=== PATIENT | male | born 1985 | race Caucasian/White ===

== ENCOUNTER 2024-11-07 13:48 | Emergency (ER) | payer OTHER, SELFPAY ==
--- OUTSIDE RECORDS SUMMARY | 2024-11-07 13:52 | XMS REPORT | Continuity of Care Document ---
Author Name Unknown Address [address] [facility] [place] [address] [facility] Address [address] [facility] [place] [address] Care Team Providers Care Instrument Person Name Role Phone ERIN ANGUIANO Primary Care Physician Unavaila ROSALINDA Merrill Attending Clinician Unavailable HARITHA Attending Clinician Unavailable EMMETT PANDYA Attending Clinician Unavailable Emmett Pandya MD Attending Clinician OLESYA CARREON Attending Clinician UnavailOlesya Bhakta Attending Clinician Vik Attending Clinician Unavailable ROSALINDA GREGORY Admitting Clinician Unavailable HARITHA Admitting Clinician Unavailable OLESYA CARREON Admitting Clinician Unavaila lynne Chery Admitting Clinician Unavailable Payers Payer Name Policy Type Policy Number Effective Date Expirati on Date Source [place] [employer] [id number] 2019 00:00:00 [employer] (EPO) [id number] 2018 00:00:00 [employer] [id number] 2018 00:00:00 Problems Condition Name Condition Details Condition Category Status Onset Date Resolution Date Last Treatment Date Treating Clinician Comments Source Liver enzymes outside reference range Liver Enzymes outside Reference Range Problem Active 02-20 00:00: 00 [place] López [facility] Abdominal pain Abdominal pain Disease Active 08-23 00:00: 00 [facility] Allergies, Adverse Reactions, Alerts Allergy Name Allergy Type Status Severity Reaction(s) Onset Date Inactive Date Treating Clinician Comments Source PEANUT DRUG INGREDI Active Anaphylaxis 08-22 00:00: 00 [facility] Peanut Propensi ty to adverse reaction s Active Anaphylaxis 08-22 00:00: 00 [facility] Social History Social Habit Start Date Stop Date Quantity Comments [facility] 2023-07-15 00:00:00 2023-07-15 00:00:00 Current drinker of alcohol (finding) [facility] History of Social function 2023-07-15 00:00:00 2023-07-15 00:00:00 [facility] Alcoholic beverage intake 2023-07-15 00:00:00 2023-07-15 00:00:00 Current drinker of alcohol (finding) [facility] Tobacco use and exposure 2017-08-23 00:00:00 2017-08-23 00:00:00 Smokeless tobacco non-user [facility] Alcohol Comment 2017-08-23 00:00:00 2017-08-23 00:00:00 occasional [facility] Sex assigned at 1985 00:00:00 1985 00:00:00 [facility] Smoking Status Start Date Stop Date Source Never Smoker [facility] Medications Ordered Medication Name Filled Medication Name Start Date Stop Date Current Medication? Ordering Clinician Indication Dosage Frequency Signature (SIG) Comments Components Source iopamidol (ISOVUE 370-500 mL) injection 85 mL 01-08 22:30: 00 01-08 22:30 :00 No [id number] 85mL 85 mL, Intravenou s, ONCE, 1 dose, On Mon01/09/24 at 1730, Routine [facility] ketorolac (TORADOL) injection 15 mg 01-08 22:28: 00 01-08 22:58 :00 No 15mg 15 mg, Slow IV Push, ONCE, 1 dose, On Mon01/09/24 at 1730, Routine [facility] sodium chloride (NS) injection 5 mL 01-08 20:06: 14 Yes 5mL 5 mL, Intravenou s, PRN, Starting on Mon01/09/24 at 1506, Until Discontinu ed, Routine, IV line flushing [facility] HYDROcodone -acetaminop hen (NORCO 5) 5-325 mg tablet 1 tablet 2022-08 06:30: 00 07-16 05:40 :00 No 1{tbl} 1 tablet, Oral, ONCE, 1 dose, On 07/16/23 at 0030, Routine [facility] HYDROcodone -acetaminop hen (NORCO 5) 5-325 mg tablet 1 tablet 2022-08 00:00: 00 07-15 23:15 :00 No 1{tbl} 1 tablet, Oral, ONCE, 1 dose, On 07/15/23 at 1800, Routine [facility] ibuprofen 600 mg tablet 2022-08 00:00: 00 07-23 05:59 :00 No [id number] 600mg Take 1 tablet by mouth every 6 (six) hours as needed for Alternate with [place] for pain scale 4-6 for up to 7 days. [facility] HYDROcodone -acetaminop hen 5-325 mg tablet 2022-08 00:00: 00 07-23 05:59 :00 No [id number] 1{tbl} Take 1 tablet by mouth every 6 (six) hours as needed for Pain (scale 7-10) for up to 7 days. Indication s: acute pain [facility] traMADOL 50 mg tablet 08-23 00:00: 00 Yes 50mg Take 1 tablet by mouth every 6 (six) hours. [facility] Polyethylen e Glycol 3350 17 gram powder 08-23 00:00: 00 Yes 17g Take 1 Packet by mouth every 24 (twenty-fo ur) hours as needed for Constipati on. [facility] acetaminoph en-codeine (TYLENOL #3) 300-30 mg tablet 01-14 00:00: 00 Yes 1{tbl} Take 1 tablet by mouth every 6 (six) hours as needed for Pain (scale 7-10). [facility] proMETHazin e (PHENERGAN) 25 mg tablet 01-14 00:00: 00 Yes 25mg Take 1 tablet by mouth every 6 (six) hours as needed for Nausea and Vomiting (N/V). [facility] Vital Signs Vital Name Observation Time Observation Value Comments S ource BP Systolic 2024-10-03 00:00:00 132 mm[Hg] [facility] Height 2024-10-03 00:00:00 68 [in_i] [facility] Body Weight 2024-10-03 00:00:00 3248 [oz_av] [facility] BP Diastolic 2024-10-03 00:00:00 70 mm[Hg] [facility] BMI (Body Mass Index) 2024-10-03 00:00:00 30.9 kg/m2 [facility] Body Weight 2024-08-22 00:00:00 3252 [oz_av] [facility] BMI (Body Mass Index) 2024-08-22 00:00:00 30.9 kg/m2 [facility] BP Systolic 2024-08-22 00:00:00 133 mm[Hg] [facility] Height 2024-08-22 00:00:00 68 [in_i] [facility] BP Diastolic 2024-08-22 00:00:00 98 mm[Hg] [facility] Systolic blood pressure 2024-01-09 22:58:00 119 mm[Hg] [facility] Diastolic blood pressure 2024-01-09 22:58:00 85 mm[Hg] [facility] Heart rate 2024-01-09 22:58:00 77 /min [facility] Respiratory rate 2024-01-09 22:58:00 16 /min [facility] Oxygen saturation in Arterial blood by Pulse oximetry 2024-01-09 22:58:00 98 /min [facility] Body temperature 2024-01-09 20:06:00 36.89 Karen [facility] Body height 2024-01-09 20:06:00 172.7 cm [facility] Body weight 2024-01-09 20:06:00 88.451 kg [facility] BMI 2024-01-09 20:06:00 29.65 kg/m2 [facility] BP Diastolic 2023-10-19 00:00:00 72 mm[Hg] [facility] BP Systolic 2023-10-19 00:00:00 118 mm[Hg] [facility] BMI (Body Mass Index) 2023-10-19 00:00:00 30.1 kg/m2 [facility] Body Weight 2023-10-19 00:00:00 3168 [oz_av] [facility] Height 2023-10-19 00:00:00 68 [in_i] [facility] Systolic blood pressure 2023-07-16 05:00:00 101 mm[Hg] [facility] Diastolic blood pressure 2023-07-16 05:00:00 71 mm[Hg] [facility] Heart rate 2023-07-16 05:00:00 69 /min [facility] Body temperature 2023-07-16 05:00:00 37 Karen [facility] Respiratory rate 2023-07-16 05:00:00 18 /min [facility] Oxygen saturation in Arterial blood by Pulse oximetry 2023-07-16 05:00:00 100 /min [facility] Body height 2023-07-16 03:15:21 172.7 cm [facility] Body weight 2023-07-16 03:15:21 90.719 kg [facility] BMI 2023-07-16 03:15:21 30.41 kg/m2 [facility] Systolic blood pressure 2023-07-16 02:06:44 121 mm[Hg] [facility] Diastolic blood pressure 2023-07-16 02:06:44 91 mm[Hg] [facility] Respiratory rate 2023-07-16 02:06:44 16 /min [facility] Heart rate 2023-07-16 02:00:00 71 /min [facility] Body temperature 2023-07-16 02:00:00 36.78 Karen [facility] Oxygen saturation in Arterial blood by Pulse oximetry 2023-07-16 02:00:00 96 /min [facility] Body height 2023-07-16 01:05:00 172.7 cm [facility] Body weight 2023-07-16 01:05:00 90.719 kg [facility] BMI 2023-07-16 01:05:00 30.41 kg/m2 [facility] BP Diastolic 2023-04-28 00:00:00 90 mm[Hg] [facility] Body Weight 2023-04-28 00:00:00 3158.4 [oz_av] [facility] Height 2023-04-28 00:00:00 68 [in_i] [facility] BP Systolic 2023-04-28 00:00:00 124 mm[Hg] [facility] BMI (Body Mass Index) 2023-04-28 00:00:00 30 kg/m2 [facility] BP Diastolic 2023-02-20 00:00:00 84 mm[Hg] [facility] Height 2023-02-20 00:00:00 68 [in_i] [facility] BMI (Body Mass Index) 2023-02-20 00:00:00 30.3 kg/m2 [facility] BP Systolic 2023-02-20 00:00:00 138 mm[Hg] [facility] Body Weight 2023-02-20 00:00:00 3184 [oz_av] [facility] Procedures Procedure Date / Time Performed Performing Clinician Source CT, abdomen + pelvis, w/ contrast 2024-10-03 00:00:00 [facility] electrocardiogram, routine ECG, 12 leads min 2024-08-22 00:00:00 [facility] CT ABDOMEN PELVIS W CONTRAST 2024-01-09 21:32:30 Rosalinda Gregory [facility] LIPASE 2024-01-09 20:49:[address] [facility] COMP. METABOLIC PANEL (36987) 2024-01-09 20:49:00 Rosalinda Gregory [facility] CBC WITH DIFF 2024-01-09 20:49:00 Rosalinda Gregory [facility] URINALYSIS 2024-01-09 20:49:00 [facility] LIPASE 2023-07-16 03:24:00 Greg Mathew [facility] COMP. METABOLIC PANEL ([id number]) 2023-07-16 03:24:00 Greg Mathew [facility] CBC WITHOUT DIFF 2023-07-16 03:24:00 [facility] PROTHROMBIN TIME / INR 2023-07-16 03:24:00 Pretty Mathew [facility] ACTIVATED PARTIAL THRMPLAS XIOMARA 2023-07-16 03:24:00 [facility] HB ABO GROUPING 2023-07-16 03:24:00 [facility] CT MAXILLOFACIAL/MANDIBLE WO CONTRAST 2023-07-15 23:43:47 Olesya Carreon [facility] ASSIGNMENT OF BENEFITS 2023-07-15 23:34:38 Docto r Unassigned, [place] [facility] NOTICE OF PRIVACY PRACTICES 2023-07-15 22:16:54 Doctor Unassigned, [place] [facility] CONSENT/REFUSAL FOR DIAGNOSIS AND TREATMENT 2023-07-15 22:16:04 Doctor Unassigned, [place] [facility] Extraction of [place] [facility] Circumcision [facility] Encounters Start Date/Time End Date/Time Encounter Type Admission Type Attending Clinicians Care Facility Care Department Encounter ID Source 2024-10-03 00:00:00 2024-10-03 00:00:00 DONAL Mckeon: [address], [place] [address] , Ph. [phone] [facility] - [facility] - [facility], DONAL MCKEON [id number] [facility] 2024-08-22 00:00:00 2024-08-22 00:00:00 Brittnee James APRN-SKYLERB C: [address] [place] [address] , Ph. [facility] [id number] [address] [facility] 2024-01-09 15:08:00 2024-01-09 18:27:00 Emergency X ROSALINDA GREGORY [facility] ERT [id number] [facility] 2024-01-09 15:08:00 2024-01-09 18:27:00 Emergency Rosalinda Gregory [facility] [id number] [facility] 2023-11-17 00:00:00 2023-11-17 00:00:00 Outpatient ERICKSON_R [id number] [facility] 2023-10-19 00:00:00 2023-10-19 00:00:00 Outpatient ERICKSON_R [id number] [facility] 2023-10-19 00:00:00 2023-10-19 00:00:00 SKYLER MckeonC: [address] [place] [address] , Ph. [phone] [facility], [address] MATHEW [id number] [facility] 2023-09-30 00:00:00 2023-09-30 00:00:00 Outpatient ERICKSON_R [id number] [facility] 2023-08-26 00:00:00 2023-08-26 00:00:00 Outpatient ERICKSON_R [id number] [facility] 2023-07-15 21:11:00 2023-07-15 23:46:00 Emergency EMMETT HORNE [facility] STR [id number] [facility] 2023-07-15 21:11:00 2023-07-15 23:46:00 Emergency Emmett Pandya [facility] [id number] [facility] 2023-07-15 16:26:00 2023-07-15 20:10:00 Emergency X OLESYA CARREON [facility] ERT [id number] [facility] 2023-07-15 16:26:00 2023-07-15 20:10:00 Emergency Olesya Carreon F [facility] [id number] [facility] 2023-04-28 00:00:00 2023-04-28 00:00:00 Jesusita Velásquez APRN, MSN, [facility]-: [address] [place] [address], [address] [address] , Ph. [facility] [id number] [facility] 2023-02-28 00:00:00 2023-02-28 00:00:00 Outpatient ERICKSON_R [facility] [id number] [facility] 2023-02-20 00:00:00 2023-02-20 00:00:00 Outpatient ERICKSON_R [id number] [facility] 2023-02-20 00:00:00 2023-02-20 00:00:00 DESTINY Chen-C: [address], [place] [address] , Ph. [facility] - [facility] - [facility], DR[address] MATHEW [id number] [facility] 2023-01-30 00:00:00 2023-01-30 00:00:00 Outpatient QUINCY_R [facility] [id number] [facility] 2020-01-03 03:13:00 2020-01-03 03:13:00 Outpatient Shield MMG MMG [id number] [facility] Results Test Description Test Time Test Comments Results Result Comments Source CT ABDOMEN PELVIS W CONTRAST 22:40:24 ORDERING PHYSICIAN:ROSALINDA PINEDO CLINICAL INFORMATION: ? RLQ abdominal pain (Age >= 14y) COMPARISON: None Technique: ? CT of the abdomen and pelvis was performed after theadministration of IV contrast. No p.o. contrast was used. Multiplanarreformats were also obtained. This study was performed according to ALARAprinciple for radiation dose reduction. Findings: There is no evidence of obstructive uropathy. No suspicious focal renalparenchymal abnormalities are seen. Multiple small cysts are seenthroughout both kidneys. Liver, gallbladder, spleen, adrenal glands, andpancreas show no evidence of gross abnormality. There is no bowelobstruction. Appendix is normal. No free intraperitoneal air or fluid arepresent. No pathologically enlarged lymph nodes are seen in the abdomen orpelvis. The lung bases are clear. There are no suspicious focal osseouslesions. [facility] BranchType and Screen - The Type and Screen expires at midnight on the 3rd day after it was drawn. A current Type and Screen is required when RBCs are requested. For all other blood products, a Type and Scr een performed during the current hospitalizati...2023-07-16 03:59:00* Test Item Value Reference Range Interpretation Comme nts ABO & RH (test code = 20) B POSITIVE IAT (test code = 1185) Negative [facility] 03:49:21* Test Item Value Reference Range Interpretation Comme nts LIPASE (test code = 2801324218) 147 U/L 0-220 Lab Interpretation (test cod e = 14569-7) Normal [facility]23-[facility]-26 03:47:21* Test Item Value Reference Range Interpretation Comme [facility] APTT Patient (test code = 3173-2) 32 See_Comment [Automated iZocaa ge] The system which generated this result transmitted reference range: 26 - 36 Seconds. The reference range was not used to interpret this result as normal/abnormal. Lab Interpretation (test code = 30775-8) Normal [facility] Time / [id number] 03:47:21* Test Item Value Reference Range Interpretation Comme [facility] PROTIME PATIENT (test code = 5964-2) 10.2 See_Comment [Automated messa ge] The system which generated this result transmitted reference range: 10.1 - 12.6 Seconds. The reference range was not used to interpret this result as normal/abnormal. INR (test code = 6301-6) 0.9 Normal INR <1.1; Warfarin Therapeutic range 2.0 to 3.0 or 2.5 to 3.5, depending upon the indications. Lab Interpretation (test code = 37377-6) Normal [facility] Without [id number] 03:35:59* Test Item Value Reference Range Interpretation Comme [facility] WBC (test code = 6690-2) 8.35 See_Comment [Automated message] The system which generated this result transmitted reference range: 4.20 - 10.70 10*3/?L. The reference range was not used to interpret this result as normal/abnormal. RBC (test code = 789-8) 5.43 See_Comment [Automated message] The system which generated this result transmitted reference range: 4.26 - 5.52 10*6/?L. The reference range was not used to interpret this result as normal/abnormal. HGB (test code = 718-7) 15.9 g/dL 12.2-16.4 HCT (test code = 4544-3) 46.7 % 38.4-49.3 MCH (test code = 785-6) 29.3 pg 26.1-32.7 MCV (test code = 787-2) 86.0 fL 81.7-95.6 MCHC (test code = 786-4) 34.0 g/dL 31.2-35.0 PLT (test code = 777-3) 328 See_Comment [Automated message] The system which generated this result transmitted reference range: 150 - 328 10*3/?L. The reference range was not used to interpret this result as normal/abnormal. MPV (test code = 98620-5) 9.4 fL 9.8-13.0 L RDW-CV (test code = 788-0) 13.0 % 12.1-15.4 RDW-SD (test code = 41350-5) 40.1 fL 38.5-51.6 NRBC x10^3 (test code = 9690146695) See_Comment [Automated messa ge] The system which generated this result transmitted reference range: 10*3/?L. The reference range was not used to interpret this result as normal/abnormal. NRBC/100 WBC (test code = 2366900630) 0.0 See_Comment [Automated messa ge] The system which generated this result transmitted reference range: 0.0 - 10.0 /100 WBCs. The reference range was not used to interpret this result as normal/abnormal. IPF % (test code = 9039360005) Lab Interpretation (test code = 90929-7) Abnormal [facility] Notes Date/Time Note Provider Source 2024-01-09 18:21:19 Pt given printed and verbal discharge instructions regarding simple kidney cysts, pain control, encouraged hydration, NO Prescriptions provided Discussed ibuprofen and to take with food to avoid GI distress. Pt verbalized understanding of instructions, pt awake alert oriented, resp reg unlabored, skin w/d, color appropriate for race, moves all ext well,pt encouraged to follow up with pcp and or Nephrology Advised to seek medical attention for new/prolonged/worsening of symptoms, No adverse reaction to meds given in ER noted upon discharge PIV d'cd, dressing to site, catheter in tact. Awake, alert oriented, resp reg unlabored, skin w/d, pt leaving amb with steady gait, in no apparent distress, [facility] 2024-01-09 15:04:50 Patient reports that he has had dull RLQ abdominal pain for the past 3 weeks and that the past few days the pain has gotten more intense and last night he began to vomit. Denies diarrhea. Reports no medical history or surgical history. Annamaria Watkins RN [facility]
--- NOTE | 2024-11-07 15:53 | RAD REPORT ---
EXAMINATION: ULTRASOUND DUPLEX OF SCROTUM AND TESTICLES CLINICAL INDICATION: Testicular pain TECHNIQUE: Duplex scan of the scrotal contents was performed including real-time color and spectral D oppler ultrasonography with arterial inflow and venous outflow. COMPARISON: No prior exam. FINDINGS: Right testicle measures 5 x 2.5 x 3 cm with a normal echotexture. Normal blood flow. Left testicle measures 4.9 x 2.7 x 2. 8 with a normal echotexture. Normal blood flow. 3 mm testicular appendix with normal blood flow Right epididymis normal in size and echotexture. Normal blood flow. 2 mm spermatocele Left epididymis normal in size and echotexture. Normal blood flow Small left hydrocele IMPRESSION: Small left hydrocele
[2024-11-07 15:55] LABS: Specific Gravity 1.014 (1.005-1.030); Urine Bilirubin NEGATIVE (Negative); Urine Blood Negative (Negative); Urine Clarity Clear (Clear); Urine Color Light-Yellow (Yellow); Urine Glucose NEGATIVE (Negative); Urine Ketones NEGATIVE (Negative); Urine Microscopic Reflex YN NO UMIC; Urine Nitrite NEGATIVE (Negative); Urine Protein NEGATIVE (Negative); Urine Urobilinogen Normal (Normal)
[2024-11-07 16:02] LABS: Absolute Eosinophils 0.3 K/uL (0-0.5); Absolute Lymphocytes (CBC) 1.3 K/uL (0.7-4.9); Absolute Monocytes 0.6 K/uL (0.1-1.3); Basophils % 0.5 % (0-1.3); Eosinophils % 5.2 % (0-4.4); Hematocrit 45.9 % (39.6-49.0); Lymphocytes % 21.4 % (15.3-44.8); MCH 29.5 pg (27.0-35.0); MCHC 34.9 g/dL (32.0-36.0); MCV 84.4 fL (80-100); MPV 8.2 fL (7.6-11.3); Monocytes % 9.3 % (3.3-12.3); Neutrophils % 63.6 % (41.7-73.7); Platelets 274 thou/uL (152-406); RBC Red Blood Cell Count 5.43 M/uL (4.33-5.43); Red Cell Distribution Width 13.3 % (12.1-15.2)
[2024-11-07 16:06] LABS: Albumin 3.8 g/dL (3.4-5.0); Albumin/Globulin Ratio 0.9 (1.1-1.8); Anion Gap 6.9 mEq/L (5.0-15.0); Bilirubin Total 0.5 mg/dL (0.2-1.0); Globulin 4.3 g/dL (2.3-3.5); Potassium 3.9 mEq/L (3.5-5.1); Protein, Total 8.1 g/dL (6.4-8.2)
[2024-11-07] MEDS ORDERED: KETOROLAC 30 MG/ML INJ ONE (16:14)
[2024-11-07] MEDS ORDERED: NA CHLORIDE 0.9% 1,000 ML ONE (16:14)
--- NOTE | 2024-11-07 17:28 | RAD REPORT ---
EXAMINATION: CT ABDOMEN AND PELVIS WITH CONTRAST CLINICAL INDICATION: Abdominal pain TECHNIQUE: CT abdomen and pelvis was performed, after the administration of 100 cc Isovue-300.. Sagit matthias and coronal reconstructions were obtained. One or more of the following dose reduction techniques were used: Automated exposure control, adjustment of the mA and kV according to patient si ze, and iterative reconstruction. Unless otherwise specified, incidental findings do not require dedicated imaging follow-up. [id number]. Oral contrast was given. COMPARISON: .2017 FINDINGS: Liver, spleen, pancreas, adrenals and kidneys appear unremarkable No evidence of diverticulitis. Small umbilical hernia Mild thickening wall distal esophagus. Normal appendix Small umbilical hernia. Small to moderate left inguinal hernia contains fat : IMPRESSION: Mild apparent thickening wall distal esophagus may be secondary to incomplete distention or inflammat ion
--- NOTE | 2024-11-07 18:19 | EDPHYS ---
Physician Documentation [facility] Name: Mychal Valdivia Age: 39 yrs Sex: Male : 1985 Arrival Date: 11/07/2024 Time: 13:48 Bed 12 Private MD: ED Physician Alphonso Gutierrez HPI: 11/07 14:27 This 39 yrs old Male presents to ER via Ambulatory with complaints of Abdominal Pain. cp 14:27 The patient presents with abdominal pain right lower quadrant. Onset: The cp symptoms/episode began/occurred 1 month(s) ago. The symptoms radiate to right testicle. 14:27 Associated signs and symptoms: Pertinent negatives: nausea and vomiting, constipation, cp diarrhea, dysuria, fever, penile discharge. 14:27 The symptoms are described as waxing/waning, pain returned and persistent since cp yesterday. Historical: - Allergies: 14:22 No Known Allergies; iw - Home Meds: 14:21 None [Active]; iw - PMHx: 14:21 None; iw - PSHx: 14:21 None; iw - Immunization history:: Adult Immunizations not up to date. - Infectious Disease History:: Denies. - Social history:: Smoking status: Patient denies any tobacco usage or history of. ROS: 14:30 Abdomen/GI: Positive for abdominal pain, of the right lower quadrant, Negative for cp vomiting, diarrhea, constipation, anorexia, 14:30 Eyes: Negative for injury, pain, redness, and discharge, cp 14:30 Constitutional: Negative for body aches, chills, fever, poor PO intake, 14:30 Respiratory: Negative for cough, shortness of breath, wheezing, 14:30 Back: Negative for radiated pain, 14:30 : Positive for of the right testicular pain, Negative for urinary symptoms, hematuria, penile discharge, 14:30 Neuro: Negative for altered mental status, dizziness, headache, weakness, 14:30 All other systems are negative, Exam: 14:35 Constitutional: The patient appears in no acute distress, alert, awake, non-toxic, well cp developed, well nourished, 14:35 Head/Face: Normocephalic, atraumatic. cp 14:35 Eyes: Periorbital structures: appear normal, Conjunctiva: normal, no exudate, no injection, Sclera: no appreciated abnormality, Lids and lashes: appear normal, bilaterally, 14:35 ENT: External ear(s): are unremarkable, Nose: is normal, Mouth: Lips: moist, Oral mucosa: moist, Posterior pharynx: Airway: no evidence of obstruction, patent, 14:35 Chest/axilla: Inspection: normal, 14:35 Cardiovascular: Rate: normal, 14:35 Respiratory: the patient does not display signs of respiratory distress, Respirations: normal, no use of accessory muscles, no retractions, labored breathing, is not present, 14:35 Abdomen/GI: Inspection: abdomen appears normal, Bowel sounds: active, all quadrants, Palpation: soft, in all quadrants, mild abdominal tenderness, in the right lower quadrant, rebound tenderness, is not appreciated, involuntary guarding, is not appreciated, 14:35 Back: pain, is absent, ROM is normal, CVA tenderness, is absent, Vital Signs: 14:19 BP 134 / 103; Pulse 86; Resp 18; Temp 98.7; Pulse Ox 99% on R/A; Weight 90.72 kg; iw Height 5 ft. 8 in. ; Pain 8/10; 14:19 Body Mass Index 30.41 (90.72 kg, 172.72 cm) iw 14:19 Pain Scale: Adult iw MDM: 14:18 Medical Screening Exam initiated cp 15:00 Differential diagnosis: Pyelonephritis, Testicular Torsion, Ureterolithiasis, urinary cp tract infection, hernia. 18:19 Data reviewed: vital signs, nurses notes, lab test result(s), radiologic studies, CT cp scan, plain films, and as a result, I will discharge patient. 18:19 I considered the following discharge prescriptions or medication management in the emergency department Medications were administered in the Emergency Department. See MAR. Counseling: I had a detailed discussion with the patient and/or guardian regarding the historical points, exam findings, and any diagnostic results supporting the discharge/admit diagnosis, lab results, radiology results, to return to the emergency department if symptoms worsen or persist or if there are any questions or concerns that arise at home. Response to treatment: the patient's symptoms have mildly improved after treatment, and as a result, I will discharge patient. Special discussion: Based on the patient's Hx, exam, and Dx evaluation, there is no indication for emergent surgery or inpatient Tx. It is understood by the patient/guardian that if the Sx's persist or worsen they need to return immediately for re-evaluation. 11/07 14:26 Order name: CBC with Diff; Complete Time: 16:15 cp 11/07 14:26 Order name: CMP; Complete Time: 16:15 cp 11/07 18:17 Interpretation: Normal except: AST 49; ALT 81; ALK 118; GLOB 4.3; A/G 0.9. cp 11/07 14:26 Order name: Lipase; Complete Time: 16:15 cp 11/07 14:26 Order name: Urinalysis w/ reflexes cp 11/07 14:26 Order name: CT Abd/Pelvis - PO and IV Contrast; Complete Time: 18:14 cp 11/07 18:15 Interpretation: Report reviewed. cp 11/07 14:28 Order name: US Scrotum Testicles; Complete Time: 15:59 cp 11/07 16:00 Interpretation: Report reviewed. cp 11/07 14:26 Order name: IV Saline Lock; Complete Time: 15:47 cp 11/07 14:26 Order name: Labs collected and sent; Complete Time: 15:47 cp Administered Medications: 16:22 Drug: NS 0.9% IV 1000 ml IV at 1 bolus Per protocol; to be given as a bolus over 60 aa5 minutes Route: IV; Rate: 1 bolus; Site: left antecubital; 17:22 Follow up: IV Status: Completed infusion; IV Intake: 1000ml aa5 16:22 Drug: Ketorolac IVP 15 mg IVP once Route: IVP; Site: left antecubital; aa5 16:30 Follow up: Response: No adverse reaction aa5 Disposition Summary: 11/07/24 18:19 Discharge Ordered Notes: Location: Home cp Problem: new cp Symptoms: have improved cp Condition: Stable cp Diagnosis - Lower abdominal pain, unspecified cp Followup: cp - With: Private Physician - When: 2 - 3 days - Reason: Recheck today's complaints Discharge Instructions: - Discharge Summary Sheet cp - Abdominal Pain, Adult cp Forms: - Medication Reconciliation Form cp - Antibiotic Education cp - Prescription Opioid Use cp - Patient Portal Instructions cp - Leadership Thank You Letter cp Prescriptions: - dicyclomine 20 mg Oral tablet - take 1 tablet ORAL route 4 times per day; 30 tablet; Refills: 0, Product cp Selection Permitted Signatures: Dispatcher [employer] EDMS Geno Larsen, RN RN iw Noris Mock RN RN aa5 Collin Casillas PA PA cp Corrections: (The following items were deleted from the chart) 14: 14:27 CBC+H.LAB.BRZ ordered. EDMS EDMS 14 14:27 COMPREHENSIVE METABOLIC PANEL+C.LAB.BRZ ordered. EDMS EDMS 14: 14:27 LIPASE+C.LAB.BRZ ordered. EDMS EDMS 14: 14:27 Urinalysis+U.LAB.BRZ ordered. EDMS EDMS
--- NOTE | 2024-11-07 18:19 | ER ---
Nurse's Notes [facility] Name: Mychal Valdivia Age: 39 yrs Sex: Male : 1985 Arrival Date: 11/07/2024 Time: 13:48 Bed 12 Private MD: Diagnosis: Lower abdominal pain, unspecified Presentation: 11/07 14:19 Chief complaint: Patient states: RLQ pain radiating to testicle intermittent for a iw month , worse yesterday. Coronavirus screen: At this time, the client does not indicate any symptoms associated with coronavirus-19. Ebola Screen: No symptoms or risks identified at this time. Initial Sepsis Screen: Does the patient meet any 2 criteria? No. Patient's initial sepsis screen is negative. Does the patient have a suspected source of infection? No. Patient's initial sepsis screen is negative. Risk Assessment: Do you want to hurt yourself or someone else? Patient reports no desire to harm self or others. Onset of symptoms was September 2024. 14:19 Method Of Arrival: Ambulatory iw 14:19 Acuity: MICHAEL 3 iw Historical: - Allergies: 14:22 No Known Allergies; iw - Home Meds: 14:21 None [Active]; iw - PMHx: 14:21 None; iw - PSHx: 14:21 None; iw - Immunization history:: Adult Immunizations not up to date. - Infectious Disease History:: Denies. - Social history:: Smoking status: Patient denies any tobacco usage or history of. Assessment: 16:22 Reassessment: Patient is alert, oriented x 3, equal unlabored respirations, skin aa5 warm/dry/pink. 18:59 Reassessment: Patient is alert, oriented x 3, equal unlabored respirations, skin aa5 warm/dry/pink. Vital Signs: 14:19 BP 134 / 103; Pulse 86; Resp 18; Temp 98.7; Pulse Ox 99% on R/A; Weight 90.72 kg; iw Height 5 ft. 8 in. ; Pain 8/10; 14:19 Body Mass Index 30.41 (90.72 kg, 172.72 cm) iw 14:19 Pain Scale: Adult iw ED Course: 13:53 Patient arrived in ED. al6 14:08 Collin Casillas PA is PHCP. cp 14:08 Alphonso Gutierrez MD is Attending Physician. cp 14:20 Triage completed. iw 14:22 Arm band placed on. iw 15:16 US Scrotum Testicles In Process Unspecified. EDMS 15:44 Initial lab(s) drawn, by me, sent to lab. Inserted saline lock: 20 gauge antecubital aa5 area, using aseptic technique. Blood collected. Flushed with 10 mL NS. 15:46 Patient placed in waiting room, Patient notified of wait time. aa5 16:55 CT Abd/Pelvis - PO and IV Contrast In Process Unspecified. EDMS 18:59 No provider procedures requiring assistance completed. IV discontinued, intact, aa5 bleeding controlled, No redness/swelling at site. Pressure dressing applied. Administered Medications: 16:22 Drug: NS 0.9% IV 1000 ml IV at 1 bolus Per protocol; to be given as a bolus over 60 aa5 minutes Route: IV; Rate: 1 bolus; Site: left antecubital; 17:22 Follow up: IV Status: Completed infusion; IV Intake: 1000ml aa5 16:22 Drug: Ketorolac IVP 15 mg IVP once Route: IVP; Site: left antecubital; aa5 16:30 Follow up: Response: No adverse reaction aa5 Intake: 17:22 IV: 1000ml; Total: 1000ml. aa5 Outcome: 18:19 Discharge ordered by MD. cp 19:00 Discharged to home ambulatory, aa5 19:00 Condition: stable 19:00 Discharge instructions given to patient, Instructed on discharge instructions, follow up and referral plans. medication usage, Demonstrated understanding of instructions, follow-up care, medications, Prescriptions given X 1, 19:01 Patient left the ED. aa5 Signatures: Dispatcher [employer] EDMS Geno Larsen RN RN iw Noris Mock RN RN aa5 Collin Casillas PA PA cp Landin, Alissa al6 Corrections: (The following items were deleted from the chart) 14:23 14:19 BP 134 / 103; Pulse 86bpm; Resp 18bpm; Pulse Ox 99% RA; Temp 98.7F; iw iw
[2024-11-07 19:51] VITALS: BP 134/103; TEMP 98.7; O2SAT 99
== END 2024-11-07 19:01 | disposition home or self-care (01) ==
LOC: ER 13:48
DX: R10.31 Right lower quadrant pain (principal)
CPT/HCPCS: 36415; 74177; 76870; 80053; 81003; 83690; 85025; 96361; 96374; 99284; J7030; Q9967